=== PATIENT | female | born 1950 | race Caucasian/White ===

== ENCOUNTER 2022-10-13 06:05 | Inpatient (IN) | payer MEDICARE, OTHER ==
[2022-10-13] MEDS ORDERED: Thrombin 5000 UNITS/5 ML VIAL ONE ×2 (06:11→12:56)
[2022-10-13] MEDS ORDERED: Vancomycin 1 GM VIAL ONE (06:11)
[2022-10-13] MEDS ORDERED: EPINEPHrine 1 MG/ML AMP ONE (06:11)
[2022-10-13] MEDS ORDERED: Bupivacaine PF 0.5% 30 ML VIAL ONE (06:11)
[2022-10-13] MEDS ORDERED: Mag-Al 1200 mg/1200 mg/30 ML UDCUP PO PRN (06:23)
[2022-10-13] MEDS ORDERED: Prochlorperazine 10 MG/2 ML VIAL IM PRN (06:23)
[2022-10-13] MEDS ORDERED: Promethazine HCl 25 MG/ML VIAL IM PRN ×3 (06:23→14:43)
[2022-10-13] MEDS ORDERED: Acetaminophen/Codeine 30-300mg Tablet PO PRN (06:23)
[2022-10-13] MEDS ORDERED: Ondansetron PF 4 MG/2 ML Vial IVP PRN (06:23)
[2022-10-13] MEDS ORDERED: Acetaminophen 325 MG TAB PO PRN (06:23)
[2022-10-13] MEDS ORDERED: Milk Of Magnesia 30 ML UDCUP PO PRN (06:23)
[2022-10-13] MEDS ORDERED: Bisacodyl 10 MG SUPP PR PRN (06:23)
[2022-10-13] MEDS ORDERED: diphenhydrAMINE 50 MG/ML VIAL IVP PRN (06:23)
[2022-10-13] MEDS ORDERED: tiZANidine HCl 4 MG TAB PO PRN (06:27)
[2022-10-13] MEDS ORDERED: CEFAZOLIN 2 GM VIAL ONE (06:48)
[2022-10-13] MEDS ORDERED: Sodium Chloride 0.9% 100 ML ONE (06:48)
[2022-10-13] MEDS ORDERED: fentaNYL 50 mcg/mL 1 mL Vial ONE ×4 (06:57→19:00)
[2022-10-13] MEDS ORDERED: ePHEDrine Sulfate 50 MG/10 ML VIAL ONE (07:02)
[2022-10-13] MEDS ORDERED: Dexamethasone 20 MG/5 ML VIAL ONE (07:02)
[2022-10-13] MEDS ORDERED: Rocuronium Bromide 10 MG/ML (10ML VIAL) ONE (07:02)
[2022-10-13] MEDS ORDERED: Ketorolac Tromethamine 30 MG/ML VIAL ONE (07:02)
[2022-10-13] MEDS ORDERED: Lidocaine 1% PF 5 ML VIAL ONE (07:02)
[2022-10-13] MEDS ORDERED: PROPOFOL 200 MG/20 ML VIAL ONE (07:02)
[2022-10-13] MEDS ORDERED: PHENYLEPHRINE-NS 100 MCG/ML 10 ML SYRINGE ONE (07:02)
[2022-10-13] MEDS ORDERED: Ondansetron PF 4 MG/2 ML Vial ONE (07:02)
[2022-10-13] MEDS ORDERED: Ondansetron HCl/PF 4 MG/2 ML Vial IVP PRN ×2 (09:01→14:43)
[2022-10-13] MEDS ORDERED: PACU-Morphine 4MG/ML VIAL SLOW IVP PRN (09:01)
[2022-10-13] MEDS ORDERED: HYDROmorphone 2 MG/ML VIAL SLOW IVP PRN ×2 (09:01→14:43)
[2022-10-13] MEDS ORDERED: Rocuronium Bromide 50 MG/5 ML VIAL ONE ×2 (09:53→11:45)
[2022-10-13] MEDS ORDERED: Phenylephrine 10 MG/ML VIAL ONE (10:04)
[2022-10-13] MEDS ORDERED: Albumin 5% 500 ML ONE (10:22)
[2022-10-13 11:57] LABS: Hematocrit 21.9 % (36.0-47.0); Hemoglobin 7.2 g/dL (12.0-16.0)
[2022-10-13] MEDS ORDERED: Vasopressin 20 UNITS/ML VIAL ONE (12:04)
[2022-10-13] MEDS ORDERED: Albumin 5% 1,000 ML ONE (12:04)
[2022-10-13] MEDS ORDERED: Midazolam HCl 2 mg/2 ml Vial ONE (12:09)
[2022-10-13] MEDS ORDERED: SUGAMMADEX SODIUM 200 MG/2 ML VIAL ONE (14:05)
[2022-10-13 14:15] LABS: Hematocrit 18.3 % (36.0-47.0); Hemoglobin 5.9 g/dL (12.0-16.0)
[2022-10-13 14:47] LABS: INR-International Normal Ratio 1.7; PTT 29.4 sec (22.9-36.1); Prothrombin Time 20.6 sec (12.0-14.7)
[2022-10-13 14:48] LABS: #Monocytes 0.2 thou/uL (0.11-0.59); #Neutrophils 10.2 thou/uL (1.40-6.50); %Basophils 0.2 % (0.0-1.0); %Eosinophils 0.1 % (0.0-10.0); %Lymphocytes 9.8 % (21.0-51.0); %Monocytes 1.3 % (0.0-10.0); %Neutrophils 87.8 % (42.0-75.0); Hematocrit 23.6 % (36.0-47.0); Mean Corpuscular HGB CONC 33.9 g/dL (32.0-36.0); Mean Corpuscular Hemoglobin 30.9 pg (27.0-31.0); Mean Corpuscular Volume 91.1 fl (78.0-98.0); Platelet Count 117 10x3/uL (130-400); RBC Distribution Width 13.4 % (11.5-14.5); Red Blood Cell (RBC) Count 2.59 mill/uL (4.20-5.40); White Blood Cell (WBC) Count 11.6 10x3/uL (4.8-10.8)
[2022-10-13] MEDS ORDERED: CEFAZOLIN 2 GM in Sodium Chloride 0.9% 100 ML IVPB SCH (15:00)
[2022-10-13 15:01] LABS: INR-International Normal Ratio 1.6; Prothrombin Time 19.5 sec (12.0-14.7)
[2022-10-13 15:02] LABS: PTT 27.9 sec (22.9-36.1)
[2022-10-13 15:16] LABS: ALT (SGPT) 13 U/L (8-55); AST (SGOT) 18 U/L (5-34); Albumin 3.1 g/dL (3.4-4.8); Alkaline Phosphatase 38 U/L (40-110); Anion Gap 11 mmol/L (10-20); BUN (Urea Nitrogen) 15 mg/dL (9.8-20.1); Calc. Creatinine Clearance 53 mL/min (70-130); Calcium 7.4 mg/dL (7.8-10.44); Carbon Dioxide 22 mmol/L (23-31); Chloride 108 mmol/L (98-107); Estimated GFR 62; Globulin 1.1 g/dL (2.4-3.5); Glucose 273 mg/dL (83-110); Potassium 4.6 mmol/L (3.5-5.1); Protein, Total 4.2 g/dL (5.8-8.1); Sodium 136 mmol/L (136-145)
[2022-10-13 19:52] LABS: #Monocytes 0.5 thou/uL (0.11-0.59); #Neutrophils 10.3 thou/uL (1.40-6.50); %Basophils 0.1 % (0.0-1.0); %Lymphocytes 5.3 % (21.0-51.0); %Neutrophils 90.2 % (42.0-75.0); Hematocrit 31.4 % (36.0-47.0); Mean Corpuscular HGB CONC 35.4 g/dL (32.0-36.0); Mean Corpuscular Hemoglobin 30.5 pg (27.0-31.0); Mean Platelet Volume 10.2 fL (7.4-10.4); Platelet Count 126 10x3/uL (130-400); RBC Distribution Width 14.1 % (11.5-14.5); Red Blood Cell (RBC) Count 3.64 mill/uL (4.20-5.40); White Blood Cell (WBC) Count 11.4 10x3/uL (4.8-10.8)
[2022-10-13 20:03] LABS: Hemoglobin 11.1 g/dL (12.0-16.0); Mean Corpuscular Volume 86.3 fl (78.0-98.0)
[2022-10-13 20:29] VITALS: BMI 28.6
[2022-10-13] MEDS: CEFAZOLIN 2 GM in Sodium Chloride 0.9% 100 ML IVPB SCH (21:20)
[2022-10-13] MEDS: HYDROcodone/Acetaminophen 7.5/325 mg Tablet PO PRN (22:22)
[2022-10-13] MEDS: Sodium Chloride 0.9% 1,000 ML IV SCH ×2 (22:29→22:33)
[2022-10-13] MEDS ORDERED: Dextrose 5% in Water 1,000 ML IV PRN (23:23)
[2022-10-13] MEDS ORDERED: Dextrose 50% Abboject 50 ML SYRINGE SLOW IVP PRN (23:23)
[2022-10-13] MEDS ORDERED: Glucagon 1 MG/ML KIT IM PRN (23:23)
[2022-10-13] MEDS ORDERED: HumaLOG 300 UNITS/3 ML VIAL SC PRN (23:23)
[2022-10-14] MEDS: Lactated Ringer's 1,000 ML IV SCH ×2 (03:33→13:58)
[2022-10-14] MEDS: CEFAZOLIN 2 GM in Sodium Chloride 0.9% 100 ML IVPB SCH (04:03)
[2022-10-14 04:07] LABS: #Monocytes 0.8 thou/uL (0.11-0.59); #Neutrophils 8.1 thou/uL (1.40-6.50); %Basophils 0.1 % (0.0-1.0); %Lymphocytes 10.8 % (21.0-51.0); %Monocytes 7.7 % (0.0-10.0); %Neutrophils 80.9 % (42.0-75.0); Hematocrit 26.7 % (36.0-47.0); Hemoglobin 9.4 g/dL (12.0-16.0); Mean Corpuscular HGB CONC 35.2 g/dL (32.0-36.0); Mean Corpuscular Hemoglobin 30.6 pg (27.0-31.0); Mean Platelet Volume 10.4 fL (7.4-10.4); RBC Distribution Width 14.6 % (11.5-14.5); Red Blood Cell (RBC) Count 3.07 mill/uL (4.20-5.40)
[2022-10-14 04:32] LABS: Anion Gap 8 mmol/L (10-20); BUN (Urea Nitrogen) 16 mg/dL (9.8-20.1); Calc. Creatinine Clearance 59 mL/min (70-130); Calcium 7.4 mg/dL (7.8-10.44); Carbon Dioxide 25 mmol/L (23-31); Chloride 107 mmol/L (98-107); Estimated GFR 62; Glucose 113 mg/dL (83-110); Potassium 4.9 mmol/L (3.5-5.1); Sodium 135 mmol/L (136-145)
[2022-10-14 04:33] LABS: Platelet Count 121 10x3/uL (130-400)
[2022-10-14] MEDS: HYDROcodone/Acetaminophen 7.5/325 mg Tablet PO PRN (06:29)
[2022-10-14] MEDS ORDERED: Levothyroxine Sodium 88 MCG TAB PO SCH (08:00)
[2022-10-14] MEDS: Floranex 1 GM Packet PO SCH (08:06)
[2022-10-14] MEDS: Levothyroxine Sodium 88 MCG TAB PO SCH (08:06)
[2022-10-14] MEDS: DULoxetine 60 MG CAP PO SCH (08:07)
[2022-10-14] MEDS: Bupropion 150 MG XL TAB PO SCH (08:07)
[2022-10-14] MEDS: Multivitamin W/ Minerals 1 TAB PO SCH (08:07)
[2022-10-14] MEDS: Ferrous Sulfate 325 MG TAB PO SCH (08:07)
[2022-10-14] MEDS ORDERED: Ascorbic Acid 500 mg Chewable Tablet PO SCH (09:00)
[2022-10-14 10:14] LABS: Hematocrit 25.4 % (36.0-47.0); Hemoglobin 8.6 g/dL (12.0-16.0); Mean Corpuscular HGB CONC 33.9 g/dL (32.0-36.0); Mean Corpuscular Hemoglobin 30.2 pg (27.0-31.0); Mean Corpuscular Volume 89.1 fl (78.0-98.0); Mean Platelet Volume 11.1 fL (7.4-10.4); RBC Distribution Width 14.8 % (11.5-14.5); Red Blood Cell (RBC) Count 2.85 mill/uL (4.20-5.40); White Blood Cell (WBC) Count 8.9 10x3/uL (4.8-10.8)
[2022-10-14 10:19] LABS: Platelet Count 36 10x3/uL (130-400)
[2022-10-14 10:45] LABS: INR-International Normal Ratio 1.5; Prothrombin Time 18.8 sec (12.0-14.7)
[2022-10-14 10:46] LABS: PTT 32.6 sec (22.9-36.1)
[2022-10-14 10:47] LABS: D-Dimer Test 1.35 *mcg/mL (0.27-0.43); Platelet Count 36 10x3/uL (130-400)
[2022-10-14 10:51] LABS: Fibrinogen 115 mg/dL (253-463)
[2022-10-14] MEDS: Morphine 2 MG/ML VIAL SLOW IVP PRN ×2 (11:05→13:35)
[2022-10-14] MEDS ORDERED: Sodium Chloride 0.9% 500 ML IV SCH (11:15)
[2022-10-14 12:04] LABS: #Eosinphils 0.1 thou/uL (0.0-0.7); #Monocytes 0.6 thou/uL (0.11-0.59); %Basophils 0.4 % (0.0-1.0); %Eosinophils 0.6 % (0.0-10.0); %Lymphocytes 18.3 % (21.0-51.0); %Monocytes 7.3 % (0.0-10.0); %Neutrophils 73.2 % (42.0-75.0); Hematocrit 23.9 % (36.0-47.0); Hemoglobin 8.1 g/dL (12.0-16.0); Mean Corpuscular HGB CONC 33.9 g/dL (32.0-36.0); Mean Corpuscular Hemoglobin 30.1 pg (27.0-31.0); Mean Corpuscular Volume 88.8 fl (78.0-98.0); Mean Platelet Volume 10.6 fL (7.4-10.4); Platelet Count 110 10x3/uL (130-400); RBC Distribution Width 14.7 % (11.5-14.5); Red Blood Cell (RBC) Count 2.69 mill/uL (4.20-5.40); White Blood Cell (WBC) Count 8.3 10x3/uL (4.8-10.8)
[2022-10-14] MEDS: HYDROcodone/Acetaminophen 10/325 mg Tablet PO PRN ×2 (12:33→19:01)
[2022-10-14 16:37] LABS: Hemoglobin 8.3 g/dL (12.0-16.0)
[2022-10-14 18:35] LABS: INR-International Normal Ratio 1.2; Prothrombin Time 15.9 sec (12.0-14.7)
[2022-10-14 18:37] LABS: PTT 31.1 sec (22.9-36.1)
[2022-10-14] MEDS: Atorvastatin Calcium 20 MG TAB PO SCH (20:07)
[2022-10-15] MEDS: HYDROcodone/Acetaminophen 10/325 mg Tablet PO PRN ×3 (05:01→23:26)
[2022-10-15] MEDS: Lactated Ringer's 1,000 ML IV SCH ×2 (05:02→16:37)
[2022-10-15] MEDS: Levothyroxine Sodium 88 MCG TAB PO SCH (06:25)
[2022-10-15 07:27] LABS: #Eosinphils 0.4 thou/uL (0.0-0.7); #Monocytes 0.6 thou/uL (0.11-0.59); #Neutrophils 5.7 thou/uL (1.40-6.50); %Basophils 0.5 % (0.0-1.0); %Eosinophils 4.7 % (0.0-10.0); %Lymphocytes 18.2 % (21.0-51.0); %Monocytes 7.4 % (0.0-10.0); %Neutrophils 68.8 % (42.0-75.0); Hematocrit 25.7 % (36.0-47.0); Hemoglobin 8.6 g/dL (12.0-16.0); Mean Corpuscular HGB CONC 33.5 g/dL (32.0-36.0); Mean Corpuscular Hemoglobin 30.5 pg (27.0-31.0); Mean Corpuscular Volume 91.1 fl (78.0-98.0); Mean Platelet Volume 10.2 fL (7.4-10.4); Platelet Count 124 10x3/uL (130-400); RBC Distribution Width 14.8 % (11.5-14.5); Red Blood Cell (RBC) Count 2.82 mill/uL (4.20-5.40); White Blood Cell (WBC) Count 8.3 10x3/uL (4.8-10.8)
[2022-10-15] MEDS: DULoxetine 60 MG CAP PO SCH (08:00)
[2022-10-15] MEDS: Multivitamin W/ Minerals 1 TAB PO SCH (08:00)
[2022-10-15] MEDS: Ferrous Sulfate 325 MG TAB PO SCH (08:00)
[2022-10-15] MEDS: Bupropion 150 MG XL TAB PO SCH (08:00)
[2022-10-15] MEDS: Floranex 1 GM Packet PO SCH (08:01)
[2022-10-15] MEDS: Magnesium Oxide 250 MG TAB PO SCH (08:01)
[2022-10-15] MEDS: HYDROcodone/Acetaminophen 7.5/325 mg Tablet PO PRN (18:14)
[2022-10-15] MEDS: Atorvastatin Calcium 20 MG TAB PO SCH (21:55)
[2022-10-16 05:06] LABS: #Eosinphils 0.6 thou/uL (0.0-0.7); #Monocytes 0.7 thou/uL (0.11-0.59); #Neutrophils 5.5 thou/uL (1.40-6.50); %Basophils 0.5 % (0.0-1.0); %Eosinophils 6.6 % (0.0-10.0); %Lymphocytes 18.3 % (21.0-51.0); %Monocytes 8.6 % (0.0-10.0); %Neutrophils 65.6 % (42.0-75.0); Hematocrit 30.7 % (36.0-47.0); Hemoglobin 10.2 g/dL (12.0-16.0); Mean Corpuscular HGB CONC 33.2 g/dL (32.0-36.0); Mean Corpuscular Hemoglobin 30.5 pg (27.0-31.0); Mean Corpuscular Volume 91.9 fl (78.0-98.0); Mean Platelet Volume 10.8 fL (7.4-10.4); Platelet Count 142 10x3/uL (130-400); RBC Distribution Width 14.1 % (11.5-14.5); Red Blood Cell (RBC) Count 3.34 mill/uL (4.20-5.40); White Blood Cell (WBC) Count 8.3 10x3/uL (4.8-10.8)
[2022-10-16] MEDS: Levothyroxine Sodium 88 MCG TAB PO SCH (05:38)
[2022-10-16] MEDS: Lactated Ringer's 1,000 ML IV SCH (05:38)
[2022-10-16] MEDS: Bupropion 150 MG XL TAB PO SCH (08:49)
[2022-10-16] MEDS: Floranex 1 GM Packet PO SCH (08:49)
[2022-10-16] MEDS: Magnesium Oxide 250 MG TAB PO SCH (08:49)
[2022-10-16] MEDS: Ferrous Sulfate 325 MG TAB PO SCH (08:50)
[2022-10-16] MEDS: DULoxetine 60 MG CAP PO SCH (08:50)
[2022-10-16] MEDS: HYDROcodone/Acetaminophen 10/325 mg Tablet PO PRN ×2 (08:50→20:54)
[2022-10-16] MEDS: Multivitamin W/ Minerals 1 TAB PO SCH (08:50)
[2022-10-16] MEDS ORDERED: Polyethylene Glycol 3350 17 GM Packet PO SCH (11:45)
[2022-10-16] MEDS ORDERED: Docusate 100 MG CAP PO SCH (11:45)
[2022-10-16] MEDS: CEFAZOLIN 2 GM in Sodium Chloride 0.9% 100 ML IVPB SCH ×2 (13:08→20:53)
[2022-10-16 13:41] LABS: Factor IX Test 93.3 % ACTIVE (56-149)
[2022-10-16] MEDS: Atorvastatin Calcium 20 MG TAB PO SCH (20:54)
[2022-10-17] MEDS: CEFAZOLIN 2 GM in Sodium Chloride 0.9% 100 ML IVPB SCH ×3 (04:00→21:25)
[2022-10-17] MEDS: Levothyroxine Sodium 88 MCG TAB PO SCH (06:01)
[2022-10-17 06:33] LABS: Hematocrit 29.5 % (36.0-47.0); Hemoglobin 9.9 g/dL (12.0-16.0); Mean Corpuscular HGB CONC 33.6 g/dL (32.0-36.0); Mean Corpuscular Hemoglobin 30.1 pg (27.0-31.0); Mean Corpuscular Volume 89.7 fl (78.0-98.0); Mean Platelet Volume 11.3 fL (7.4-10.4); Platelet Count 154 10x3/uL (130-400); RBC Distribution Width 13.7 % (11.5-14.5); Red Blood Cell (RBC) Count 3.29 mill/uL (4.20-5.40); White Blood Cell (WBC) Count 7.3 10x3/uL (4.8-10.8)
[2022-10-17 07:25] LABS: Chloride 101 mmol/L (98-107); Potassium 4.4 mmol/L (3.5-5.1); Sodium 136 mmol/L (136-145)
[2022-10-17 07:26] LABS: Calcium 8.5 mg/dL (7.8-10.44); Glucose 96 mg/dL (83-110)
[2022-10-17 07:28] LABS: Anion Gap 11 mmol/L (10-20); Carbon Dioxide 28 mmol/L (23-31)
[2022-10-17 07:30] LABS: Calc. Creatinine Clearance 67 mL/min (70-130); Estimated GFR 70
[2022-10-17 07:31] LABS: BUN (Urea Nitrogen) 9 mg/dL (9.8-20.1)
[2022-10-17] MEDS: DULoxetine 60 MG CAP PO SCH (09:34)
[2022-10-17] MEDS: Ferrous Sulfate 325 MG TAB PO SCH (09:34)
[2022-10-17] MEDS: Bupropion 150 MG XL TAB PO SCH (09:34)
[2022-10-17] MEDS: Multivitamin W/ Minerals 1 TAB PO SCH (09:34)
[2022-10-17] MEDS: Magnesium Oxide 250 MG TAB PO SCH (09:34)
[2022-10-17] MEDS: Floranex 1 GM Packet PO SCH (09:34)
[2022-10-17] MEDS: HYDROcodone/Acetaminophen 7.5/325 mg Tablet PO PRN (12:30)
[2022-10-17] MEDS: HYDROcodone/Acetaminophen 10/325 mg Tablet PO PRN ×2 (17:01→21:25)
[2022-10-17] MEDS: Atorvastatin Calcium 20 MG TAB PO SCH (21:25)
[2022-10-18] MEDS: Levothyroxine Sodium 88 MCG TAB PO SCH (05:28)
[2022-10-18] MEDS: CEFAZOLIN 2 GM in Sodium Chloride 0.9% 100 ML IVPB SCH ×2 (05:28→12:36)
[2022-10-18] MEDS: Ferrous Sulfate 325 MG TAB PO SCH (08:43)
[2022-10-18] MEDS: Magnesium Oxide 250 MG TAB PO SCH (08:43)
[2022-10-18] MEDS: Floranex 1 GM Packet PO SCH (08:43)
[2022-10-18] MEDS: DULoxetine 60 MG CAP PO SCH (08:43)
[2022-10-18] MEDS: Bupropion 150 MG XL TAB PO SCH (08:43)
[2022-10-18] MEDS: Multivitamin W/ Minerals 1 TAB PO SCH (08:43)
[2022-10-18] MEDS: HYDROcodone/Acetaminophen 10/325 mg Tablet PO PRN (09:18)
[2022-10-18 11:57] VITALS: BP 162/92; TEMP 98.8
== END 2022-10-18 12:30 | disposition home or self-care (01) | DRG 454 ==
LOC: SDC 06:05 → CCU 06:29 → SURG B 10-15 09:00
PROVIDERS: ADMIT Neurological Surgery; ATTEND Internal Medicine
PROC: 0SG30AJ Fusion of Lumbosacral Joint with Interbody Fusion Device, Posterior Approach, Anterior Column, Open Approach (ICD-10-PCS; principal; 2022-10-13)
PROC: 0SG3071 Fusion of Lumbosacral Joint with Autologous Tissue Substitute, Posterior Approach, Posterior Column, Open Approach (ICD-10-PCS; 2022-10-13)
PROC: 01NB0ZZ Release Lumbar Nerve, Open Approach (ICD-10-PCS; 2022-10-13)
PROC: 01NR0ZZ Release Sacral Nerve, Open Approach (ICD-10-PCS; 2022-10-13)
PROC: 0SB40ZZ Excision of Lumbosacral Disc, Open Approach (ICD-10-PCS; 2022-10-13)
PROC: 30233L1 Transfusion of Nonautologous Fresh Plasma into Peripheral Vein, Percutaneous Approach (ICD-10-PCS; 2022-10-13)
PROC: 30233N1 Transfusion of Nonautologous Red Blood Cells into Peripheral Vein, Percutaneous Approach (ICD-10-PCS; 2022-10-13)
PROC: 30233R1 Transfusion of Nonautologous Platelets into Peripheral Vein, Percutaneous Approach (ICD-10-PCS; 2022-10-13)
PROC: 30233M1 Transfusion of Nonautologous Plasma Cryoprecipitate into Peripheral Vein, Percutaneous Approach (ICD-10-PCS; 2022-10-13)
PROC: 30233K1 Transfusion of Nonautologous Frozen Plasma into Peripheral Vein, Percutaneous Approach (ICD-10-PCS; 2022-10-13)
PROC: 30233J1 Transfusion of Nonautologous Serum Albumin into Peripheral Vein, Percutaneous Approach (ICD-10-PCS; 2022-10-13)
DX: M48.062 Spinal stenosis, lumbar region with neurogenic claudication (principal); D62 Acute posthemorrhagic anemia; E87.20 Acidosis, unspecified; M96.811 Intraoperative hemorrhage and hematoma of a musculoskeletal structure complicating other procedure; M43.17 Spondylolisthesis, lumbosacral region; M48.07 Spinal stenosis, lumbosacral region; E66.9 Obesity, unspecified; E78.00 Pure hypercholesterolemia, unspecified; E11.9 Type 2 diabetes mellitus without complications; F32.A Depression, unspecified; M19.90 Unspecified osteoarthritis, unspecified site; Z96.653 Presence of artificial knee joint, bilateral; M54.17 Radiculopathy, lumbosacral region; E87.8 Other disorders of electrolyte and fluid balance, not elsewhere classified; E03.9 Hypothyroidism, unspecified; F41.9 Anxiety disorder, unspecified; Y83.8 Other surgical procedures as the cause of abnormal reaction of the patient, or of later complication, without mention of misadventure at the time of the procedure; K59.00 Constipation, unspecified; K59.03 Drug induced constipation; T50.995A Adverse effect of other drugs, medicaments and biological substances, initial encounter; D69.6 Thrombocytopenia, unspecified; T39.395A Adverse effect of other nonsteroidal anti-inflammatory drugs [NSAID], initial encounter; Z68.29 Body mass index [BMI] 29.0-29.9, adult; Z90.49 Acquired absence of other specified parts of digestive tract; Z98.890 Other specified postprocedural states; Z87.891 Personal history of nicotine dependence; Z85.3 Personal history of malignant neoplasm of breast
CPT/HCPCS: 36415; 36416; 36430; 80048; 80053; 85014; 85018; 85025; 85027; 85049; 85240; 85250; 85300; 85362; 85379; 85384; 85610; 85730; 86850; 86900; 86901; A4314; C1713; C1776; C1889; J0171; J1100; J1885; J2250; J2272; J2370; J2405; J2704; J3010; J3370; J3490; J7030; J7050; J7120; P9012; P9016; P9035; P9045; P9059; S0020